=== PATIENT | female | born 1995 | race Caucasian/White ===

== ENCOUNTER 2020-07-11 13:53 | Emergency (ER) | payer BC, SELFPAY ==
[2020-07-11 14:10] VITALS: BP 129/74; PULSE 78; RESP 16; TEMP 36.9; O2SAT 99
--- NOTE | 2020-07-11 14:27 | ED.GENADULT ---
HPI - General Adult General Chief complaint: Upper Respiratory Infection Stated complaint: Sore Throat/Nausea Time Seen by Provider: 07/11/20 14:19 Source: patient and RN notes reviewed Mode of arrival: ambulatory Limitations: no limitations History of Present Illness HPI narrative: 25-year-old female presents with complaints of sore throat, body aches, and intermittent nausea and headaches (not the worst of her life) for the past 4 days. Leni reports symptoms has increased over the past 24 hours with sore throat and fatigue. Tylenol last on 07/10/20 and Ibuprofen last n 07/11/20, Zinc, gargle with warm water and salt without relief. No high fevers, highest 99.6 Fahrenheit drooling, neck or throat swelling. Pain is bilateral. Hurts to swallow. Exacerbation factors consist of eating and drinking. No rhinorrhea. Nasal congestion. No voice change. No nausea, vomiting, or abdominal pain. Tolerating liquids well. Denies chills, dyspnea, difficulty swallowing, jaw pain, dental pain, facial pain, foreign body sensation, and rash. LMP 06/20/20. Remains active. The patient reports she have not been diagnosed with COVID-19. The patient reports she is not waiting for the results of a COVID-19 lab test. NEGATIVE COVID-19 07/08/20. The patient reports she do not have chills, weakness, or fatigue. The patient reports she do not have a new or worsening cough or shortness of breath. Denies chest pain. The patient reports she do not have any rhinorrhea, loss of taste, vomiting, abdominal pain, and diarrhea. Tolerating po intake well. Denies recent traveling. Denies concerns for COVID-19 or exposures been home with limited outdoor exposure except for essential household needs, work, and return home. At this time, patient is not suspected of having COVID-19. Some parts of this dictation were generated by voice recognition software and may contain typographical and/or grammatical inaccuracies. Related Data Home Medications Medication Instructions Recorded Confirmed levothyroxine 112 mcg PO DAILY 07/11/20 07/11/20 norgestimate-ethinyl estradiol 1 tablet PO DAILY 07/11/20 07/11/20 [Estarylla] Allergies Allergy/AdvReac Type Severity Reaction Status Date / Time No Known Allergies Allergy Verified 07/11/20 14:01 Review of Systems Review of Systems: Narrative: CONSTITUTIONAL: Complains of fever. Denies chills, sweats. EYES: Denies visual changes, redness, discharge. ENT: Denies rhinorrhea, otalgia. Complains of sore throat, congestion. CARDIOVASCULAR: Denies chest pain, palpitations, edema. RESPIRATORY: Denies dyspnea, wheezing, cough. GASTROINTESTINAL: Denies abdominal pain, vomiting, diarrhea. Complains of nausea. GENITOURINARY: Denies dysuria, hematuria, abnormal discharge. SKIN: Denies rash or itching. MUSCULOSKELETAL: Denies acute back pain, joint pain, or myalgia. NEUROLOGIC: Denies numbness or focal weakness. PSYCHIATRIC: Denies anxiety or depression. All systems reviewed & are unremarkable except as noted in HPI and below. [facility] Past Medical History Medical History (Updated 07/12/20 @ 00:00 by Osvaldo Bean) Asthma Graves' disease Hypothyroidism Surgical History Surgical History (Updated 07/11/20 @ 15:54 by SISI Ash) No significant past surgical history Family History Family History (Updated 07/11/20 @ 15:55 by SISI Ash) Father Alive and well Mother Hypertension Social History Social History (Updated 07/11/20 @ 15:56 by SISI Ash) Smoking status: Never smoker Tobacco type: cigarettes Second hand tobacco smoke exposure: No Alcohol intake: current Substance use: never Living arrangements: with family Occupation/Education: occupation Gender identity (if verbalized by the patient): Female Comments At time of signature, agree with nurse past medical, surgical, social, and family history. There is no relevant family history pert
== END 2020-07-11 14:50 | disposition home or self-care (01) ==
PROVIDERS: Emergency Provider Nurse Practitioner Family
DX: B34.9 Viral infection, unspecified (principal); Z20.828 Contact with and (suspected) exposure to other viral communicable diseases; J45.909 Unspecified asthma, uncomplicated; E05.00 Thyrotoxicosis with diffuse goiter without thyrotoxic crisis or storm; E03.9 Hypothyroidism, unspecified
CPT/HCPCS: 36416; 86308; 87081; 87804; 87880; 99213; G0463

== ENCOUNTER 2020-12-16 14:15 | Emergency (ER) | payer BC, SELFPAY ==
--- NOTE | 2020-12-16 14:21 | ED.EAR ---
HPI - Ear Problem General Chief complaint: Ear Stated complaint: Righ Ear pain and Tonsils in pain Time Seen by Provider: 12/16/20 14:22 Source: patient and RN notes reviewed History of Present Illness HPI Narrative: Patient is a 25-year-old female who presents the urgent care with complaints of right ear pain and sore throat. Patient also reports of some postnasal drainage and mild nasal congestion. Patient states that started with the right ear pain approximately 3 to 4 days ago and a sore throat the last 2 days. Patient denies any known exposure to strep, Covid or influenza. Denies of any fevers, nausea, vomiting, headache, cough. Patient has been using [id number] Aleve cold and sinus without much relief. No other acute complaints. No acute distress noted. Patient aware of the plan of care. Some parts of this dictation were generated by voice recognition software and may contain typographical and/or grammatical inaccuracies. Related Data Home Medications Medication Instructions Recorded Confirmed levothyroxine 112 mcg PO DAILY 07/11/20 12/16/20 norgestimate-ethinyl estradiol 1 tablet PO DAILY 07/11/20 12/16/20 [Estarylla] Allergies Allergy/AdvReac Type Severity Reaction Status Date / Time No Known Allergies Allergy Verified 12/16/20 14:31 Review of Systems Review of Systems: Narrative: CONSTITUTIONAL: Denies fever, chills, or sweats. EYES: Denies visual changes, redness, or discharge. ENT: Reports of postnasal drainage, sore throat and right otalgia CARDIOVASCULAR: Denies chest pain, palpitations, or edema. RESPIRATORY: Denies cough or dyspnea. GASTROINTESTINAL: Denies abdominal pain, nausea, vomiting, or diarrhea. GENITOURINARY: Denies dysuria or hematuria. SKIN: Denies rash or itching. MUSCULOSKELETAL: Denies back pain, joint pain, or myalgia. NEUROLOGIC: Denies headache, numbness, or weakness. All other systems reviewed are negative, except as documented in HPI. [facility] Past Medical History Medical History (Updated 12/16/20 @ 14:42 by SISI Rene) Asthma Graves' disease Hypothyroidism Surgical History Surgical History (Updated 07/11/20 @ 15:54 by SISI Ash) No significant past surgical history Family History Family History (Updated 07/11/20 @ 15:55 by SISI Ash) Father Alive and well Mother Hypertension Social History Social History (Updated 07/11/20 @ 15:56 by SISI Ash) Smoking status: Never smoker Tobacco type: cigarettes Second hand tobacco smoke exposure: No Alcohol intake: current Substance use: never Gender identity (if verbalized by the patient): Female Comments At the time of my signature, I reviewed and agree with the nursing past medical, surgical, social, and family history. There is no relevant family history pertinent to the patient complaint. Exam Narrative: Exam Narrative: GENERAL: This is a well-nourished, well-developed patient, in no apparent distress. HEAD: normocephalic, atraumatic. EYES: PERRL. Sclera clear/white. Vision is grossly intact. EARS: External ears normal, auditory canals clear and without drainage, TMs normal without perforation. Hearing grossly intact. NOSE: External nose normal with no obvious nasal discharge, nares without redness, no rhinorrhea. THROAT: Mucous membranes moist, moderate erythema noted to posterior oropharynx with mild bilateral tonsillar erythema and moderate edema with bilateral exudate. Moderate postnasal drainage. NECK: Neck supple, mild tender bilateral submandibular lymphadenopathy CARDIOVASCULAR: Regular rate and rhythm without murmurs, gallops, or rubs. RESPIRATORY: Clear to auscultation. Breath sounds equal bilaterally. No wheezes, rales, or rhonchi. SKIN: warm, intact with no suspicious lesions or rash, good texture and turgor. NEURO: awake, alert, and oriented to person, place and time. There were no obvious focal neurologic abnormalities. EXTREM
[2020-12-16 14:23] VITALS: BP 153/89; PULSE 105; RESP 14; TEMP 37.5; O2SAT 100
[2020-12-16 14:31] VITALS: BP 153/89; PULSE 105; RESP 14; TEMP 37.5; O2SAT 100
== END 2020-12-16 14:47 | disposition home or self-care (01) ==
PROVIDERS: Emergency Provider Nurse Practitioner Family; PCP Family Medicine
DX: J03.80 Acute tonsillitis due to other specified organisms (principal); B96.89 Other specified bacterial agents as the cause of diseases classified elsewhere; J45.909 Unspecified asthma, uncomplicated; E05.00 Thyrotoxicosis with diffuse goiter without thyrotoxic crisis or storm; R03.0 Elevated blood-pressure reading, without diagnosis of hypertension
CPT/HCPCS: 87081; 87880; 99213; G0463

== ENCOUNTER 2021-09-24 13:39 | Emergency (ER) | payer OTHER, BC, SELFPAY ==
[2021-09-24 13:43] VITALS: BP 143/94; PULSE 63; RESP 14; TEMP 36.3; O2SAT 100
--- NOTE | 2021-09-24 14:02 | ED.HEATRA ---
HPI - Head Injury General Chief complaint: Head Injury Stated complaint: head injury Time Seen by Provider: 09/24/21 13:52 Source: patient History of Present Illness HPI Narrative: Patient presents with a head injury. She was at work trying to restrain a canine when dog struck her head with his head. Since then patient has had a right-sided headache where she was struck some blurry vision as well as nausea. The event occurred approximately 2 hours ago. She denies any focal numbness or weakness she denies any double vision denies any chest pain or shortness of breath Related Data Home Medications Medication Instructions Recorded Confirmed levothyroxine 112 mcg PO DAILY 07/11/20 12/16/20 norgestimate-ethinyl estradiol 1 tablet PO DAILY 07/11/20 12/16/20 [Estarylla] Allergies Allergy/AdvReac Type Severity Reaction Status Date / Time Iodinated Contrast Media Allergy Rash Verified 09/24/21 13:50 Review of Systems Review of Systems: CONSTITUTIONAL: Denies fever, chills, or sweats. EYES: Denies visual changes, redness, or discharge. ENT: Denies rhinorrhea, congestion, sore throat, or otalgia. CARDIOVASCULAR: Denies chest pain, palpitations, or edema. RESPIRATORY: Denies cough or dyspnea. GASTROINTESTINAL: Denies abdominal pain, nausea, vomiting, or diarrhea. GENITOURINARY: Denies dysuria or hematuria. SKIN: Denies rash or itching. MUSCULOSKELETAL: Denies back pain, joint pain, or myalgia. NEUROLOGIC: Denies numbness, dizziness, or weakness. PSYCHIATRIC: Denies anxiety or depression. All systems reviewed & are unremarkable except as noted in HPI and below [facility] Past Medical History Medical History Asthma Graves' disease Hypothyroidism Surgical History Surgical History No significant past surgical history Family History Family History Father Alive and well Mother Hypertension Social History Social History Smoking status: Never smoker Tobacco type: cigarettes Second hand tobacco smoke exposure: No Alcohol intake: current Substance use: never Gender identity (if verbalized by the patient): Female Exam Narrative: GENERAL: Well-appearing, well-nourished, and in no acute distress. HEAD: Normocephalic, atraumatic. EYES: PERRLA and EOMI. ENT: Nares clear, no rhinorrhea or epistaxis. Mucous membranes moist. NECK: Supple. No masses. No JVD EXTREMITIES: Normal range of motion. No edema. SKIN: Warm, dry, no rash. NEURO: Cranial nerves II through XII are intact patient is 5 out of 5 strength in all extremities sensation intact to light touch in all extremities alert and oriented x3. PSYCH: Normal mood and affect. Course Vital Signs Vital signs: Vital Signs Temperature 36.3 C L 09/24/21 13:43 Pulse Rate 63 09/24/21 13:43 Respiratory Rate 14 09/24/21 13:43 Blood Pressure 143/94 H 09/24/21 13:43 Pulse Oximetry 100 09/24/21 13:43 Temperature 36.3 C L 09/24/21 13:43 Pulse Rate 63 09/24/21 13:43 Respiratory Rate 14 09/24/21 13:43 Blood Pressure 143/94 H 09/24/21 13:43 Pulse Oximetry 100 09/24/21 13:43 MDM - Head Injury MDM Narrative Medical decision making narrative: H&P as above, vss, pt looks clinically well, exam without focal neurological deficits no hematoma or open draining wounds, CT was offered however there is low clinical concern for intracranial hemorrhage or fracture patient is comfortable without imaging, additional labs/img considered, symptomatic relief available as needed, on reevaluation pt continues to looks clinically well. Suspect concussion, dns intracranial hemorrhage, mass, fracture. plan to tx/monitor as op w/ pcm f/u findings/plan discussed with pt, pt agree/comfortable with plan, return precautions given Discharge Plan Di
== END 2021-09-24 14:29 | disposition home or self-care (01) ==
PROVIDERS: Emergency Provider Emergency Medicine; PCP Family Medicine
DX: S06.0X0A Concussion without loss of consciousness, initial encounter (principal); J45.909 Unspecified asthma, uncomplicated; E05.00 Thyrotoxicosis with diffuse goiter without thyrotoxic crisis or storm; E03.9 Hypothyroidism, unspecified; W54.1XXA Struck by dog, initial encounter
CPT/HCPCS: 99283